=== PATIENT | male | born 1995 | race Caucasian/White ===

== ENCOUNTER 2016-12-04 09:14 | Emergency (ER) | payer SELFPAY ==
[~2016-12-04] VITALS: Ht 172.7 cm; Wt 58.2 kg
[2016-12-04 09:21] VITALS: BP 121/78
[2016-12-04] MEDS ORDERED: DEXAMETHASONE 4 MG/ML, 5ML ONE (10:14)
[2016-12-04] MEDS ORDERED: DEXAMETHASONE 4 MG/ML, 1ML PO ONE (10:30)
[2016-12-06] MEDS ORDERED: AMOX125T PO (04:12)
== END 2016-12-04 10:21 ==
LOC: ED 10:15
DX: J03.00 Acute streptococcal tonsillitis, unspecified (principal)
CPT/HCPCS: 99283; J1100